=== PATIENT | male | born 1975 | race Caucasian/White ===

== ENCOUNTER → 2016-11-14 | Outpatient (CLI) | payer OTHER ==
--- NOTE | 2016-11-14 11:18 | DIAGNOSTIC IMAGING REPORT ---
GI SERIES W/AIR ROUTINE CLINICAL HISTORY: Z00.00 Health [id number] small ring. Possible sleep apnea. Possible reflux. COMPARISON STUDY: None FLUOROSCOPY TIME: 2.4 minutes. 17 fluoroscopic spot images were acquired.. FINDINGS: The patient swallowed effervescent granules and barium without difficulty. No esophageal or gastric masses or ulcerations are visualized. There is a small sliding hiatal hernia with a distal esophageal ring. There is no gastric outlet obstruction. The duodenal bulb appeared normal. IMPRESSION: 1. No esophageal or gastric masses identified 2. Small sliding hiatal hernia with a distal esophageal ring Electronically signed by: Alireza Stahl M.D. 11/14/2016 11:17 AM Dictated Date/Time: 11/14/2016 11:15 AM
== END | disposition home or self-care (01) ==
LOC: C.RAD 10:44
PROVIDERS: ATTEND Physician Assistant
DX: Z00.00 Encounter for general adult medical examination without abnormal findings (principal); R06.83 Snoring; K44.0 Diaphragmatic hernia with obstruction, without gangrene

== ENCOUNTER → 2017-02-23 | Outpatient (CLI) | payer OTHER ==
--- NOTE | 2017-02-24 06:04 | PAP/PSG TECHNICIAN REPORT ---
[facility] Rail Gang Supervisor Polysomnogram Report Study name: None Report date: 02/24/2017 Study date: 02/23/2017 Referring Physician: SARAH ALFARO PA-C Name: RAMON TAYLOR Interpreting Physician: Grzegorz Ty M.D. Date of : 1975 Rail Gang Supervisor: Erlinda De Paz RPS. Sex: Male Age: 42 Study Type: PSG Weight: 211 lbs Height: 42 years, Height 5' 11" BMI: 29.43 Medications: PREVACID 15 MG, DICLOFENAC 75 MG, METAMUCIL Patient History 42 yr-old male here for a baseline/split study. He has a history of loud snoring, daytime sleepiness, GERD, and frequent awakenings. His Kimberton scale is 17. The test was started on room air. ETCO2 testing was not utilized during this study. Room 3 Parameters Monitored NPSG: E1-M2, E2-M1, Fp1-M2, Fp2-M1, F3-M2, F4-M2, F4-M1, C3-M2, C4-M2, C4-M1, O1-M2, O2-M2, O2-M1, T3-M2, T4-M1, P3-M2, P4-M1, CHIN1, CHIN2, HR, EKG, Legs, PFLOW, SNOR, FLOW, CFLOW, Tidal Volume, THOR, ABDO, SpO2, PLTH, CPRESS, ETCO2 Wave, ETCO2, pH Sleep Architecture Sleep Stages Time at Lights Off 10:34:14 PM STAGES Time (min.) TST (%) Time at Lights On 5:36:44 AM Wake 27.0 -- Total Recording Time (TRT) 422.50 min. N1 59.5 15 Total Sleep Period (TSP) 411.0 min. N2 235.5 60 Total Sleep Time (TST) 395.5min. N3 0.0 0 Awake Time 27.0 min. REM 100.5 25 Wake after Sleep Onset 15.5 min. Sleep Efficiency (SE) 94 % Sleep Onset Latency (JASON) 11.5 min. Number of Stage 1 Shifts None Awakenings 16 Stage Changes 115 Number of REM periods 7 REM 100.5 25 REM Latency 87.0 min. NREM 295.0 75 Body Position Analysis Supine Right Left Side Prone Vertical Total Sleep Time (min.) 316.6 36.0 66.0 102.00 0.0 0.0 Total Sleep Time (%) 74% 9% 17% 26 0% N/A% Total Sleep Time REM (min.) 81.0 0.0 19.5 None 0.0 0.0 Total Sleep Time NREM (min.) 212.5 36.0 46.5 None 0.0 0.0 Intermittent Wake (min.) 23.1 1.4 2.5 None 0.0 0.0 Total Sleep Period (%) 74% None None None None None Arousals Myoclonus (PLM) * Events Count Index Events Count Index Spontaneous 33 5 Events Awake (PLMW) 21 46.7 Respiratory 19 3.3 Events Asleep w/ Arousal (PLMA) 15 2.3 PLM 15 2 Events Asleep w/o Arousal (PLMS) 96 14.6 Snoring 25 4 Total Asleep 111 16.8 Total 91 14 Total 132 19 Respiratory Analysis * CA OA MA CH H RERA Total Count 0 28 0 0 117 3 145 Index 0.0 4.2 0.0 0 17.7 0 22.5 Mean Duration 0.0 19.6 0.0 0.00 17.2 18.6 17.7 Longest Duration 0.0 32.8 0.0 0.00 0.0 22.9 45.3 Respiratory Event Summary Total Supine ~Supine Right Left Prone REM NREM Apneas Count 28 28 0 0 0 N/A 27 1 Index 4.2 6 0 0.0 0.0 N/A 16 0 Hypopneas (4% Desat) Count 117 116 1 0 1 N/A 46 71 Index 17.7 23.7 1 0.0 0.9 N/A 27.5 14.4 Apneas & All Hypopneas Count 145 144 1 0 1 N/A 73 72 Index 22.0 29 1 0 1 N/A 43.6 14.6 Respiratory Events (Non Emergency Services Ambulance Driver+All Hyp+RERA) Count 145 147 1 0 1 N/A 73 72 Index 22.5 30 1 0.0 0.9 N/A 44.8 14.8 Respiratory Related Arousal Count 19 147 0 0 0 N/A 14 8 Index 3.3 4 0 0 0 N/A 8 2 Snoring Analysis Supine Right Left Prone REM NREM Total Snore duration 82.0 min Snores count 2,549 220 530 N/A 571 2,728 3,299 Snore mean duration 1.5 Sec Snores index 521 367 482 N/A 340.9 554.8 500.5 TST with snoring (%) 20.7% Desaturation Event Summary: Minimum %SpO2 Event Count Mean/Min/Max Duration(sec.) Desaturation Index % Time In Bed > 90 191 25.0 / 5.0 / 60.0 35.6 76.3 86 - 90 36 19.8 / 7.8 / 36.0 23.1 22.1 81 - 85 0 N/A 0.0 1.3 76 - 80 0 N/A 0.0 0.3 71 - 75 0 N/A 0.0 0.0 66 - 70 0 N/A 0.0 0.0 61 - 65 0 N/A 0.0 0.0 56 - 60 0 N/A 0.0 0.0 51 - 55 0 N/A 0.0 0.0 < 50 0 N/A 0.0 0.0 Total REM NREM Awake <50% 0.0 min. 0.0 min. 0.0 min. 0.0 min. 51 - 60% 0.0 min. 0.0 min. 0.0 min. 0.0 min. 61 - 70% 0.0 min. 0.0 min. 0.0 min. 0.0 min. 71 - 80% 1.3 min. 1.3 min. 0.0 min. 0.0 min. 81 - 90% 99.0 min. 25.9 min. 67.4 min. 5.6 min. 91 - 100% 322.2 min. 73.3 min. 227.6 min. 21.3 min. Average 92 91 92 92 Minimum SpO2 74 74 85 86 Desaturation Event Index 27.8 46.6 22.4 17.8 # Desat. Events below 89% 107 52 53 2 Time(%) with Saturation below 89% 7.9 3.4 4.4 0.1 Time(min.) with Saturation below 89% 33.3 14.4 18.6 0.3 Time (mins) REM (mins) NREM (mins) % of TST SpO2 Below 90% 172 73 N99 14.5 SpO2 Below 88% 41 0 0 4 Heart Rate Analysis Min (bpm) Max (bpm) Average (bpm) Awake 51 101 73 NREM 57 94 68 REM 45 88 65 Overall 45 94 67 Supplemental O2 Values Minimum O2 level: None Value Start Time End Time Rail Gang Supervisor Comments Mr. Taylor slept in the right, left, and supine positions. No cardiac arrhythmias or PLMs noted. No bruxism noted. Snoring was noted and scored as a 3 on a scale of 1 through 5. (0=no snoring, 5=snoring loud enough to be heard through a closed door or down the [address] way). He did not meet specific Split-Night criteria during the diagnostic portion of this study. He did not wake up to use the restroom during the night. Mr. Taylor stated that he slept about the same as usual The final report will be interpreted and signed by a sleep physician. The completed physician report will then be placed in the patient medical record. Therapy (cm H2O) 0 TIB (min.) 422.5 TST (min.) 395.5 Sleep Onset (min.) 11.5 REM Onset From Sleep (min.) 87.0 Sleep Efficiency % 94 Wakefulness (%) 6 Wakefulness (min.) 27.0 NREM 1 (%) 15 NREM 1 (min.) 59.5 NREM 2 (%) 60 NREM 2 (min.) 235.5 NREM 3 (%) 0 NREM 3 (min.) 0.0 REM (%) 25 REM (min.) 100.5 # Arousals 91 Arousal Index 14 # Snore 3,299 Snore Index 500.5 AHI 22.0 AHI Supine 29 AHI Non-Supine 1 NREM AHI 14.6 REM AHI 43.6 RDI 22.5 # Obstructive Apnea 28 # Central Apnea 0 # Mixed Apnea 0 # Hypopneas 117 RERAs 3 Total Respiratory Events 149 Time Below SpO2 89% (min.) 33.0 Mean NREM SpO2 (%) 92 Mean REM SpO2 (%) 91 Mean Sleep SpO2 (%) 92 Min NREM SpO2 (%) 85 Min REM SpO2 (%) 74 Position Supine (min.) 316.6 Position Non-supine (min.) 102.0 LM Index Sleep 16.8 LM Index NREM 13.8 LM Index REM 25.7 Mean Heart Rate (bpm) 67 Min Heart Rate (bpm) 45
--- NOTE | 2017-02-26 14:50 | POLYSOMNOGRAPH REPORT ---
CLINICAL DATA: A 42-year-old male with BMI of 29.43 referred by Tom Salas, for a possible split night study. He has a history of loud snoring, daytime sleepiness and frequent awakenings. His Venus Sleepiness Score was elevated at 17/24. SLEEP ARCHITECTURE: Total sleep period was 411 minutes. Total sleep time was 395.5 minutes divided between 295 minutes of non-REM sleep and 100.5 minutes of REM sleep. Sleep onset latency was normal at 11.5 minutes. REM latency was 87 minutes. Sleep efficiency was 94%. Wake after sleep onset was 15.5 minutes. Sleep consisted of stage N1 15%, stage N2 60%, and REM 25%. AROUSAL DATA: 91 arousals were recorded for an index of 14 per hour. 19 were due to respiratory events. 25 were due to snoring events. PERIODIC LIMB MOVEMENTS DATA: Very mildly elevated limb movements during sleep were noted. There were 111 limb movements during sleep noted for an index of 16.8 per hour with arousal index of 2.3 per hour. RESPIRATORY DATA: Moderate sleep apnea was documented. The AHI was 22. There were 28 obstructive apneic episodes, the longest duration of which was 32.8 seconds. There were 117 hypopneic episodes. The mean duration of hypopnea was 17.2 seconds. OXIMETRY DATA: Nocturnal hypoxemia was seen. Oxygen manuel was 74% during REM. The mean saturation was 92%. Time below 88% was 41 minutes. EKG: Heart rates ranged from 45-94 beats per minute. No arrhythmias were noted. RAW SILK GRADER'S COMMENTS: The patient slept in the right, left, and supine positions. Snoring was moderate, rated 3 on a scale of 1-5. He did not meet split night criteria during the diagnostic portion of the study since the majority of his episodes occurred in the latter half of the night. IMPRESSION: Moderate sleep apnea/hypopnea with diagnostic apnea-hypopnea index of 22 with nocturnal hypoxemia. RECOMMENDATIONS: The patient may benefit from repeat sleep study with CPAP, use of auto CPAP, or use of an oral appliance. Clinical correlation is needed. RUBEN
== END | disposition home or self-care (01) ==
LOC: C.NEUR 21:00
PROVIDERS: ATTEND Physician Assistant
DX: G47.30 Sleep apnea, unspecified (principal)